=== PATIENT | female | born 1985 | race Caucasian/White ===

== ENCOUNTER 2016-09-27 14:52 | Emergency (ER) | payer SELFPAY ==
[~2016-09-27] VITALS: Ht 162.6 cm; Wt 71.7 kg
[2016-09-27 14:52] VITALS: BP 111/73
[~2016-09-27 14:52] MED LIST: LEVO50TA5 PO
--- NOTE | 2016-09-27 15:44 | ED.ADGEN ---
Past History Past Medical History: Hypothyroid Past Surgical History: No Surgical History Smoking: Less than 1pk/day Alcohol Use: Occasionally Drug Use: None Adult General Chief Complaint Chief Complaint Left shoulder pain HPI HPI Patient is a 31-year-old right-handed female presents with left posterior shoulder pain after repeated left arm use at work. Symptoms been ongoing past few days it is aggravated with arm use. No other symptoms or complaints. Review of Systems Review of Systems Review symptoms as per history of present illness. All other review symptoms are negative. Allergies Allergies Allergies Coded Allergies Type Severity Reaction Last Updated Verified lavender Allergy Intermediate rash 08/10/14 Yes Physical Exam Physical Exam Constitutional: Well developed, well nourished, no acute distress, non-toxic appearance. Extremities: Left shoulder, no bony tenderness. Left upper trapezius muscle pain /spasm reproducing pain. Neurologic: Upper extremity, no motor weakness or loss of sensation. Psychologic: Affect normal, judgement normal, mood normal. [] Current Patient Data Vital Signs Vital Signs Date Time Temp Pulse Resp B/P Pulse Ox O2 Delivery O2 Flow Rate FiO2 09/27/16 14:52 99.0 71 18 99 Room Air EKG EKG [] Radiology/Procedures Radiology/Procedures [] Impressions: #1 left trapezius muscle sprain Course & Med Decision Making Course & Med Decision Making Pertinent Labs and Imaging studies reviewed. (See chart for details) [] Final Impression Final Impression [1. Trapezius muscle sprain] Problems: Dragon Disclaimer Dragon Disclaimer This electronic medical record was generated, in whole or in part, using a voice recognition dictation system. GLORIA PEREZ DO Sep 27, 2016 15:44
== END 2016-09-27 15:40 | disposition home or self-care (01) ==
LOC: ER 14:52
DX: S46.912A Strain of unspecified muscle, fascia and tendon at shoulder and upper arm level, left arm, initial encounter (principal); E03.9 Hypothyroidism, unspecified; F17.200 Nicotine dependence, unspecified, uncomplicated; Z91.048 Other nonmedicinal substance allergy status; X58.XXXA Exposure to other specified factors, initial encounter; Y93.89 Activity, other specified; Y99.8 Other external cause status; Y92.89 Other specified places as the place of occurrence of the external cause
CPT/HCPCS: 99283